=== PATIENT | female | born 1940 | race Caucasian/White ===

== ENCOUNTER 2024-01-08 09:23 | Observation (INO) | payer MEDICARE ==
[~2024-01-08] VITALS: Ht 160 cm; Wt 56.8 kg
[2024-01-08 10:24] LABS: BASO # 0.02 K/mm3 (0.02-0.10); EOS # 0.15 K/mm3 (0.04-0.40); EOS % 2.4 % (1.0-5.0); HEMATOCRIT 43.5 % (37.0-47.0); HEMOGLOBIN 14.2 g/dL (12.5-16.0); LYMPH# 0.81 K/mm3 (1.50-4.00); MEAN CELL VOLUME 98 fl (78-100); MEAN CORPUSCULAR HEMOGLOBIN 32 pg (27-31); MEAN CORPUSCULAR HGB CONC 33 g/dL (33-37); MEAN PLATELET VOLUME 9.4 fl (7.4-10.4); MONO # 0.43 K/mm3 (0.20-0.80); NEU # 4.76 K/mm3 (1.40-6.50); PLATELET COUNT 260 K/mm3 (130-400); RED BLOOD COUNT 4.43 M/mm3 (4.10-5.30); RED CELL DISTRIBUTION WIDTH 12.6 % (11.5-14.5); WHITE BLOOD COUNT 6.2 K/mm3 (4.8-10.8)
[2024-01-08 10:29] LABS: SODIUM 141 mmol/L (136-145)
[2024-01-08 10:30] LABS: ALBUMIN 3.8 g/dL (3.4-4.8)
[2024-01-08 10:30] LABS: PH-URINE 5.5 (5.0 - 8.0); URINE APPEARANCE CLOUDY (CLEAR); URINE BILIRUBIN 1+ (NEGATIVE); URINE BLOOD NEGATIVE (NEGATIVE); URINE COLOR AMBER (YELLOW); URINE GLUCOSE NEGATIVE (NEGATIVE); URINE KETONE 2+ (NEGATIVE); URINE LEUKOCYTE ESTERASE NEGATIVE (NEGATIVE); URINE NITRATE NEGATIVE (NEGATIVE); URINE PROTEIN(semi-quant) TRACE (NEGATIVE)
[2024-01-08 10:31] LABS: URINE MUCUS PRESENT (NOT PRESENT)
[2024-01-08 10:31] LABS: CALCIUM 9.7 mg/dL (8.3-10.5)
[2024-01-08 10:33] LABS: CARBON DIOXIDE 21 mmol/L (23-31); GLUCOSE 105 mg/dL (65-105); TOTAL PROTEIN 6.7 g/dL (6.2-8.1)
[2024-01-08 10:34] LABS: TOTAL BILIRUBIN 0.6 mg/dL (0.2-1.2)
[2024-01-08 10:35] LABS: ALCOHOL IN-HOUSE < 10 mg/dL (<10)
[2024-01-08 10:37] LABS: AST-SGOT 19 U/L (5-34)
[2024-01-08 10:40] LABS: ALT/SGPT 15 U/L (0-55)
[2024-01-08] MEDS ORDERED: cefTRIAXone 1 G in Water For Injection,Sterile 10 ML IV SCH ×3 (10:45→15:45)
[2024-01-08] MEDS ORDERED: NS 1,000 ML IV SCH ×2 (10:45→15:45)
[2024-01-08 12:00] VITALS: BP 182/97
[2024-01-08 13:29] VITALS: BP 158/94
[2024-01-08 14:00] VITALS: BP 156/80
[2024-01-08] MEDS ORDERED: Naloxone 0.4 MG/ML VIAL IV PRN (15:30)
[2024-01-08] MEDS ORDERED: Acetaminophen 325 MG TAB PO PRN (15:45)
[2024-01-08 17:17] VITALS: BP 156/80
[2024-01-08 17:20] VITALS: BP 150/76
[2024-01-08] MEDS ORDERED: LORazepam 0.5 MG TABLET PO SCH (21:00)
[2024-01-08 22:05] VITALS: BP 133/80
[2024-01-09 02:14] VITALS: BP 127/73
[2024-01-09 05:42] LABS: BASO # 0.03 K/mm3 (0.02-0.10); EOS % 9.7 % (1.0-5.0); HEMOGLOBIN 12.3 g/dL (12.5-16.0); MEAN CELL VOLUME 100 fl (78-100); MEAN CORPUSCULAR HEMOGLOBIN 33 pg (27-31); MEAN CORPUSCULAR HGB CONC 32 g/dL (33-37); MEAN PLATELET VOLUME 9.4 fl (7.4-10.4); MONO # 0.43 K/mm3 (0.20-0.80); NEU # 3.27 K/mm3 (1.40-6.50); PLATELET COUNT 225 K/mm3 (130-400); RED BLOOD COUNT 3.79 M/mm3 (4.10-5.30); RED CELL DISTRIBUTION WIDTH 12.5 % (11.5-14.5); WHITE BLOOD COUNT 5.1 K/mm3 (4.8-10.8)
[2024-01-09 05:50] LABS: ALBUMIN 2.9 g/dL (3.4-4.8)
[2024-01-09 05:52] VITALS: BP 117/68
[2024-01-09 05:52] LABS: CALCIUM 8.4 mg/dL (8.3-10.5)
[2024-01-09 05:53] LABS: TOTAL PROTEIN 5.2 g/dL (6.2-8.1)
[2024-01-09 05:55] LABS: TOTAL BILIRUBIN 0.4 mg/dL (0.2-1.2)
[2024-01-09] MEDS ORDERED: cefTRIAXone 1 G in Water For Injection,Sterile 10 ML IV SCH (09:00)
[2024-01-09 10:33] VITALS: BP 149/70
[2024-01-09] MEDS ORDERED: MACROBID 100 M100 MG PO (12:28)
== END 2024-01-09 14:00 | disposition home or self-care (01) ==
LOC: ED 09:23 → MED/SURG 11:45
PROVIDERS: Nurse Practitioner Family; ADMIT Family Medicine
DX: E86.0 Dehydration (principal); N39.0 Urinary tract infection, site not specified; R41.0 Disorientation, unspecified; Z87.820 Personal history of traumatic brain injury
CPT/HCPCS: G0378; J0696; J7030